=== PATIENT | female | born 1945 ===

== ENCOUNTER 2017-07-17 12:21 | Emergency (ER) | payer MEDICARE, OTHER ==
[2017-07-17 12:21] VITALS: BMI 32.5
--- NOTE | 2017-07-17 13:09 | C.PDOC ---
History Of Present Illness 71 yo female w/PMHx of HTN, hyperlipidemia, prediabetes was sent to ED by PMD from [facility] for evaluation of Right ankle pain and swelling developed for apst 1 month associated with Right calf pain. Pt reports, pain is intermittent, worse at night time. Otherwise, pt denies fever, chills, known trauma or injury, CP, SOB, dyspnea, diaphoresis, palpitation, denies weakness, deformity, sensory or vascular deficits to Right leg. Ambulate to ED for evaluation, not in any apparent distress. Time Seen by Provider: 07/17/17 12:51 Chief Complaint (Nursing): Lower Extremity Problem/Injury History Per: Patient Past Medical History Reviewed: Historical Data, Nursing Documentation, Vital Signs Vital Signs: Last Vital Signs Temp 98.9 F 07/17/17 12:31 Pulse 71 07/17/17 12:31 Resp 18 07/17/17 12:31 BP 126/82 07/17/17 12:31 Pulse Ox 100 07/17/17 14:25 - Medical History PMH: HTN, Hypercholesterolemia Denies: Chronic Kidney Disease Other PMH: Obese - [facility] Procedures CLOSED ENDOSCOPIC BIOPSY OF LARGE INTESTINE (11/24/14) ESOPHAGOGASTRODUODENOSCOPY [EGD] W/CLOSED BIOPSY (12/01/14) Family History: States: Unknown Family Hx - Social History Hx Tobacco Use: No Hx Alcohol Use: No Hx Substance Use: No - Immunization History Hx Tetanus Toxoid Vaccination: No Hx Influenza Vaccination: Yes Hx Pneumococcal Vaccination: Yes Review Of Systems Except As Marked, All Systems Reviewed And Found Negative. Constitutional: Negative for: Fever, Chills ENT: Negative for: Throat Pain Cardiovascular: Negative for: Chest Pain, Palpitations, Orthopnea, Edema, Light Headedness Respiratory: Negative for: Cough, Shortness of Breath, Hemoptysis, SOB with Excertion, Wheezing Gastrointestinal: Negative for: Vomiting, Abdominal Pain, Diarrhea Musculoskeletal: Positive for: Leg Pain, Foot Pain Skin: Negative for: Rash, Lesions Neurological: Negative for: Weakness, Numbness Physical Exam - Physical Exam Appears: Well, Non-toxic, No Acute Distress Skin: Normal Color, Warm, Dry, No Rash Head: Normacephalic Eye(s): bilateral: PERRL Oral Mucosa: Moist Throat: No Drooling Neck: Trachea Midline, Supple Cardiovascular: Rhythm Regular, No Murmur, No JVD Respiratory: No Decreased Breath Sounds, No Accessory Muscle Use, No Stridor, No Wheezing Gastrointestinal/Abdominal: Soft, No Tenderness, No Distention, No Guarding Back: No CVA Tenderness Extremity: Normal ROM (RLE), Tenderness (mild around Right ankle), No Pedal Edema, Calf Tenderness (Right, mild. No edema, no palpable veins), No Deformity , Swelling (trace, Right ankle, non-pitting) Neurological/Psych: Oriented x3, Normal Speech, Normal Motor, Normal Sensation, Normal Reflexes ED Course And Treatment O2 Sat by Pulse Oximetry: 100 Pulse Ox Interpretation: Normal - Other Rad Right ankle X-Ray: Read By Radiologist Interpretation: Findings: Medial and lateral malleolar soft tissue swelling. Prominent plantar and dorsal calcaneal spurring. Prominent degenerative changes noted at the dorsal aspect of the midfoot. No evidence for acute displaced fracture or dislocation. Impression: Degenerative changes. If pain persists, consider MRI. Right foot X-Ray: Interpreted by Me, Viewed By Me Interpretation: (+) DJD, no acute fx or dislocation - CT Scan/US Doppler US RLE Other Rad Studies (CT/US): Radiology Report Reviewed CT/US Interpretation: HISTORY: pain. PRIORS: None. TECHNIQUE: Right common femoral, femoral, popliteal and posterior tibial, peroneal and great saphenous veins were evaluated. Flow was assessed with color Doppler, compressibility, assessment of phasic flow and augmentation response. Report prepared by Sergio Banegas, BALDEMAR, RVT. FINDINGS: RIGHT: 1. Common Femoral Vein: 1.1. Compressibility - Fully compressible: Thrombus - None: Flow - Phasic: Augmentation -Normal: Reflux - None. 2. Femoral Vein: 2.1. Compressibility - Fully compressible: Thrombus - None: Flow - Phasic: Augmentation -Normal: Reflux - None. 3. Popliteal Vein: 3.1. Compressibility - Fully compressible: Thrombus - None: Flow - Phasic: Augmentation -Normal: Reflux - None. 4. Posterior Tibial Vein: 4.1. Compressibility - Fully compressible: Thrombus - None: Flow - Phasic: Augmentation -Normal: Reflux - None. 5. Peroneal Vein: 5.1. Compressibility - Fully compressible: Thrombus - None: Flow - Phasic: Augmentation -Normal: Reflux - None. 6. Great Saphenous Vein: 6.1. Compressibility - Fully compressible: Thrombus -None: Flow - Phasic: Augmentation - Normal: Reflux - None. OTHER FINDINGS: Hypervascular lymph nodes noted in the right groin area. IMPRESSION: No evidence of deep or superficial vein thrombosis of the right lower extremity with excellent venous flow. Normal valve function noted of the right side. Normal venous flow noted in the left common femoral vein. Progress Note: On re-evaluation, pt is afebrile, hemodyanmicalys table. NOn- toxic. Ambulatory in ED with stable gait. PulseOx 100% RA. ENT: no acute findings. Neck: Supple, (-) JVD, (-) carotid bruits B/L. Lungs: CTA B/L, BS equal B/L. CVS: (+)S1S2, reg. ABd: benign. RLE: exam c/w mild trace edema over Right ankle with diffuse mild tenderness. FAROM, no neurovascular deficits. Neuorlogicaly intact. Xrays review, c/w Right ankle and foot DJD. Doppler US RLE (-) DVT. Pt advised. ref. to F/u with PMD, Ortho in 2-3 days for re-eavl. return to ED if any worseningor new changes. Disposition Counseled Patient/Family Regarding: Studies Performed, Diagnosis, Need For Followup, Rx Given - Disposition Referrals: Hanane Tello MD [Non-Staff] - Disposition: HOME/ ROUTINE Disposition Time: 15:00 Condition: STABLE Additional Instructions: Follow up with PMD, Orthopedist in 2-3 days for re-evaluation and further treatment. Return to ED if any worsening or new changes. Prescriptions: traMADol [Ultram] 50 mg PO TID #7 tab Instructions: Joint Pain, Dependent Edema (DC) Forms: [place] ([place]) Print Language: NIUEAN - Clinical Impression Clinical Impression: Arthritis, Ankle edema
--- NOTE | 2017-07-17 14:21 | RAD ---
Right ankle three views History: Pain. Comparison: None available. Findings: Medial and lateral malleolar soft tissue swelling. Prominent plantar and dorsal calcaneal spurring. Prominent degenerative changes noted at the dorsal aspect of the midfoot. No evidence for acute displaced fracture or dislocation. Impression: Degenerative changes. If pain persists, consider MRI.
--- NOTE | 2017-07-17 14:50 | RAD ---
PROCEDURE: Right Foot Radiographs. HISTORY: Pain COMPARISON: None. FINDINGS: BONES: Bone alignment is normal. There is diffuse bone demineralization. There is no acute fracture or bone destruction. There is a prominent plantar calcaneal spur and dorsal calcaneal enthesophyte. JOINTS: There is mild degenerative osteoarthrosis in the 1st MTP joint. The remaining joint spaces are preserved SOFT TISSUES: Normal. OTHER FINDINGS: None. IMPRESSION: No acute fracture or dislocation. 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
--- NOTE | 2017-07-17 15:05 | VASCLAB ---
PROCEDURE: Right Lower Extremity Venous Duplex Exam. HISTORY: pain PRIORS: None. TECHNIQUE: Right common femoral, femoral, popliteal and posterior tibial, peroneal and great saphenous veins were evaluated. Flow was assessed with color Doppler, compressibility, assessment of phasic flow and augmentation response. Report prepared by BALDEMAR Fernandez, RVT FINDINGS: RIGHT: 1. Common Femoral Vein: 1.1. Compressibility - Fully compressible: Thrombus - None: Flow - Phasic: Augmentation -Normal: Reflux - None. 2. Femoral Vein: 2.1. Compressibility - Fully compressible: Thrombus - None: Flow - Phasic: Augmentation -Normal: Reflux - None. 3. Popliteal Vein: 3.1. Compressibility - Fully compressible: Thrombus - None: Flow - Phasic: Augmentation -Normal: Reflux - None. 4. Posterior Tibial Vein: 4.1. Compressibility - Fully compressible: Thrombus - None: Flow - Phasic: Augmentation -Normal: Reflux - None. 5. Peroneal Vein: 5.1. Compressibility - Fully compressible: Thrombus - None: Flow - Phasic: Augmentation -Normal: Reflux - None. 6. Great Saphenous Vein: 6.1. Compressibility - Fully compressible: Thrombus -None: Flow - Phasic: Augmentation - Normal: Reflux - None. OTHER FINDINGS: Hypervascular lymph nodes noted in the right groin area. IMPRESSION: No evidence of deep or superficial vein thrombosis of the right lower extremity with excellent venous flow. Normal valve function noted of the right side. Normal venous flow noted in the left common femoral vein.
[2017-07-17 15:42] VITALS: BP 126/86; PULSE 78; RESP 16; TEMP 98; O2SAT 98
== END 2017-07-17 15:15 | disposition home or self-care (01) ==
LOC: C.ER 12:21
DX: M13.871 Other specified arthritis, right ankle and foot (principal); R60.0 Localized edema